=== PATIENT | male | born 1975 | race Caucasian/White ===

== ENCOUNTER 2023-11-14 12:59 | Emergency (ER) | payer OTHER ==
[2023-11-14 13:14] VITALS: BP 112/77; PULSE 66; RESP 18; TEMP 97.9; BMI 21.7
[2023-11-14 13:42] LABS: HEMATOCRIT 43.4 % (35.4-49); HEMOGLOBIN 14.5 G/dL (11.7-16.9); MCH 30.4 pg (25.7-33.7); MCHC 33.3 g/dl (32.0-35.9); MEAN CELL VOLUME 91.4 fl (80-96); MEAN PLT VOLUME 8.6 fl (7.5-11.1); PLATELET COUNT 303.3 10^3/uL (134-434); RBC 4.75 10^6/uL (4.00-5.60); RDW 15.1 % (11.9-15.9); WHITE BLOOD COUNT 6.1 10^3/uL (4.0-10.8)
[2023-11-14 13:52] LABS: INR 1.01 (0.83-1.09); PROTHROMBIN TIME (PATIENT) 11.7 SEC (9.7-13.0)
[2023-11-14 13:55] LABS: ACTIVATED PTT 34.9 SECONDS (25.2-36.5)
[2023-11-14 14:02] LABS: ALBUMIN 4.2 g/dl (3.4-5.0); BILIRUBIN,DIRECT 5.4 mg/dL (0.0-0.2); BILIRUBIN,TOTAL 9.3 mg/dl (0.2-1); CALCIUM 9.8 mg/dl (8.5-10.1); POTASSIUM 3.8 mmol/L (3.5-5.1); TOT PROT 7.1 g/dl (6.4-8.2)
== END 2023-11-14 18:10 | disposition left against medical advice (07) ==
LOC: FER 12:59
DX: L29.9 Pruritus, unspecified (principal); R17 Unspecified jaundice; E80.7 Disorder of bilirubin metabolism, unspecified
CPT/HCPCS: 36415; 74177-TC; 76705-TC; 80053; 82248; 83690; 85027; 85610; 85730; 99285-25; Q9967